=== PATIENT | male | born 1965 | race African-American/Black ===

== ENCOUNTER 2019-09-26 11:29 | Inpatient (IN) | payer MEDICAID ==
[~2019-09-26] VITALS: Ht 175.3 cm; Wt 108.8 kg
[2019-09-26 12:36] LABS: Albumin 2.7 g/dL (3.4-5.0); Calcium 8.6 mg/dL (8.5-10.1)
[2019-09-26 12:40] LABS: Bilirubin, Total 2.6 mg/dL (0.2-1.0); Total Protein 7.9 g/dL (6.4-8.2)
[2019-09-26] MEDS ORDERED: HYDROcodone-ACET 10/325MG TAB PO ONE (12:45)
[2019-09-26] MEDS ORDERED: ENOXAPARIN SOD 100 MG/1 ML SYRINGE SC ONE (13:45)
[2019-09-26 14:25] LABS: Basophils # (auto) 0 10 ^3/uL (0-0.2); Basophils % (auto) 0.4 % (0.0-2.0); Eosinophils # (auto) 0 10 ^3/uL (0-0.8); Eosinophils % (auto) 0.6 % (0.0-7.0); Hemoglobin 18.6 g/dL (13.5-17.5); Lymphocytes # (auto) 1.1 10 ^3/uL (0.4-5.4); Lymphocytes % (auto) 15.9 % (10.0-50.0); Mean Corpuscular Hemoglobin 29.4 pg (28.0-32.0); Mean Corpuscular Hgb Conc. 32.1 g/dL (32.0-36.0); Mean Corpuscular Volume 91.4 fL (80.0-100.0); Monocytes # (auto) 0.9 10 ^3/uL (0-1.3); Monocytes % (auto) 12.6 % (0.0-12.0); Neutrophils # (auto) 4.9 10 ^3/uL (1.6-8.6); Neutrophils % (auto) 70.5 % (37.0-80.0); Nucleated Red Blood Cells % 0.3 %; Platelet Count (auto) 154 10^3/uL (140-450); Red Blood Cells 6.34 10^6/uL (4.5-5.90); Red Cell Distribution Width 14.4 % (11.8-14.3); White Blood Cell 6.9 10^3/uL (4.4-10.8)
[2019-09-26 14:27] LABS: INR 1.05 (0.9-1.15); Partial Thromboplastin Time 29.6 sec (23.0-31.2)
[2019-09-26 14:28] LABS: Hematocrit 57.9 % (41.0-53.0)
[2019-09-26] MEDS ORDERED: MORPHINE SULF INJ 2 MG/ML SYRINGE 1ML IV PRN (14:30)
[2019-09-26] MEDS ORDERED: NITROGLYCERIN 0.4 MG SL TAB SL PRN (14:30)
[2019-09-26] MEDS ORDERED: ACETAMINOPHEN 500 MG TAB PO PRN (14:45)
[2019-09-26] MEDS ORDERED: TEMAZEPAM 15 MG CAP PO PRN (14:45)
[2019-09-26] MEDS: MORPHINE SULF INJ 2 MG/ML SYRINGE 1ML IV PRN (19:36)
[2019-09-26] MEDS: PROMETHAZINE HCL 25 MG/ML 1ML IV PRN (19:37)
[2019-09-26] MEDS: HYDROcodone-ACET 5/325MG TAB PO PRN (21:30)
[2019-09-26 22:22] VITALS: BP 151/96
[2019-09-26] MEDS: FAMOTIDINE 20 MG TAB PO SCH (22:54)
[2019-09-26] MEDS: ENOXAPARIN SOD 80 MG/0.8ML SYRINGE SC SCH (22:54)
[2019-09-27 05:23] VITALS: BP 145/100
[2019-09-27 08:00] VITALS: BP 174/98
[2019-09-27] MEDS: ENOXAPARIN SOD 80 MG/0.8ML SYRINGE SC SCH (08:07)
[2019-09-27] MEDS: HYDROcodone-ACET 5/325MG TAB PO PRN ×2 (08:07→14:30)
[2019-09-27] MEDS: FAMOTIDINE 20 MG TAB PO SCH ×2 (08:07→21:33)
[2019-09-27 09:00] VITALS: BP 174/98
[2019-09-27] MEDS ORDERED: HYDR-4833 PO (12:34)
[2019-09-27] MEDS ORDERED: CLOP75TA28 PO (12:36)
[2019-09-27] MEDS ORDERED: AMLO5TAB15 PO (12:36)
[2019-09-27] MEDS ORDERED: LISI-646 PO (12:36)
[2019-09-27] MEDS ORDERED: ATOR80TA PO (12:36)
[2019-09-27 13:00] VITALS: BP 169/109
[2019-09-27] MEDS ORDERED: LISINOPRIL 20 MG TAB PO ONE (13:00)
[2019-09-27] MEDS ORDERED: amLODIPine BESYLATE 5 MG TAB PO ONE (13:00)
[2019-09-27] MEDS ORDERED: hydrALAZINE HCL 20 MG/ML VL IV PRN (13:00)
[2019-09-27 17:00] VITALS: BP 157/90
[2019-09-27] MEDS: MORPHINE SULF INJ 2 MG/ML SYRINGE 1ML IV PRN (21:32)
[2019-09-27] MEDS: PROMETHAZINE HCL 25 MG/ML 1ML IV PRN (21:33)
[2019-09-27] MEDS: APIXABAN 5 MG TAB PO SCH (21:33)
[2019-09-27 22:00] VITALS: BP 156/111
[2019-09-27] MEDS ORDERED: ATORVASTATIN 20 MG TAB PO SCH (22:00)
[2019-09-28 05:00] VITALS: BP 158/115
[2019-09-28] MEDS: HYDROcodone-ACET 5/325MG TAB PO PRN (05:12)
[2019-09-28 07:18] LABS: Basophils # (auto) 0 10 ^3/uL (0-0.2); Basophils % (auto) 0.6 % (0.0-2.0); Eosinophils # (auto) 0.1 10 ^3/uL (0-0.8); Eosinophils % (auto) 2.4 % (0.0-7.0); Hemoglobin 17.8 g/dL (13.5-17.5); Monocytes # (auto) 0.7 10 ^3/uL (0-1.3)
[2019-09-28 07:21] LABS: Hematocrit 53.2 % (41.0-53.0); Lymphocytes % (auto) 17.2 % (10.0-50.0); Mean Corpuscular Hemoglobin 30.4 pg (28.0-32.0); Mean Corpuscular Hgb Conc. 33.5 g/dL (32.0-36.0); Mean Corpuscular Volume 90.7 fL (80.0-100.0); Monocytes % (auto) 12.6 % (0.0-12.0); Neutrophils # (auto) 3.8 10 ^3/uL (1.6-8.6); Neutrophils % (auto) 67.2 % (37.0-80.0); Nucleated Red Blood Cells % 0.3 %; Platelet Count (auto) 155 10^3/uL (140-450); Red Blood Cells 5.86 10^6/uL (4.5-5.90); Red Cell Distribution Width 14.4 % (11.8-14.3); White Blood Cell 5.6 10^3/uL (4.4-10.8)
[2019-09-28 07:36] LABS: Magnesium 2.4 mg/dL (1.6-2.6); Potassium 3.7 mmol/L (3.5-5.1)
[2019-09-28 07:43] LABS: Albumin 2.3 g/dL (3.4-5.0); BUN/Creatinine Ratio 10.3; Bilirubin, Total 1.5 mg/dL (0.2-1.0); Calcium 8.1 mg/dL (8.5-10.1); Total Protein 6.9 g/dL (6.4-8.2)
[2019-09-28 09:00] VITALS: BP 147/96
[2019-09-28] MEDS: APIXABAN 5 MG TAB PO SCH (09:45)
[2019-09-28] MEDS: FAMOTIDINE 20 MG TAB PO SCH (09:45)
[2019-09-28] MEDS: MORPHINE SULF INJ 2 MG/ML SYRINGE 1ML IV PRN (09:46)
[2019-09-28] MEDS ORDERED: HCTZ 25 MG TAB PO SCH (10:00)
[2019-09-28] MEDS ORDERED: LISINOPRIL 20 MG TAB PO SCH (10:00)
[2019-09-28] MEDS ORDERED: amLODIPine BESYLATE 5 MG TAB PO SCH ×2 (10:00)
[2019-09-28] MEDS ORDERED: POTA1TAB61 PO (10:18)
[2019-09-28] MEDS ORDERED: PANT40TA2 PO (10:18)
[2019-09-28] MEDS ORDERED: HCTZ25T PO (10:18)
[2019-09-28 12:15] LABS: Alcohol, Urine < 3.0 mg/dL (0-10); Amphetamine Screen, Urine NEGATIVE (NEGATIVE); Barbiturate Scree,Urine NEGATIVE (NEGATIVE); Benzodiazephine Screen, Urine NEGATIVE (NEGATIVE); Cannabinoid Screen, Urine NEGATIVE (NEGATIVE); Cocaine Screen, Urine NEGATIVE (NEGATIVE); Opiate Scree,Urine POSITIVE (NEGATIVE); Phencyclidine Screen, Urine NEGATIVE (NEGATIVE)
[2019-09-28 12:24] LABS: Urine Bacteria NONE SEEN /hpf (None Seen); Urine Blood Negative /uL (Negative); Urine Specific Gravity 1.015 (1.001-1.035); Urine WBC 1 /hpf (0 - 3)
[2019-10-04] MEDS ORDERED: APIXABAN 5 MG TAB PO SCH (22:00)
== END 2019-09-28 13:46 | disposition home or self-care (01) | DRG 197 ==
LOC: ER 11:29 → TELE 11:30 → TELE-CENTR 21:50
PROVIDERS: ADMIT Internal Medicine; ATTEND Internal Medicine
DX: I82.401 Acute embolism and thrombosis of unspecified deep veins of right lower extremity (principal); I10 Essential (primary) hypertension; F17.200 Nicotine dependence, unspecified, uncomplicated; E66.01 Morbid (severe) obesity due to excess calories; Z82.3 Family history of stroke; Z82.49 Family history of ischemic heart disease and other diseases of the circulatory system; Z71.6 Tobacco abuse counseling; Z68.35 Body mass index [BMI] 35.0-35.9, adult; I69.351 Hemiplegia and hemiparesis following cerebral infarction affecting right dominant side
CPT/HCPCS: 36415; 80053; 80061; 80307; 81001; 81241; 83735; 84443; 85025; 85302; 85305; 85306; 85610; 85613; 85670; 85705; 85730; 85732; 93971; G0378

== ENCOUNTER 2019-12-19 10:40 | Inpatient (IN) | payer MEDICAID ==
[~2019-12-19] VITALS: Ht 175.3 cm; Wt 116.6 kg
[~2019-12-19 10:40] MED LIST: AMLO5TAB15 PO; ATOR80TA PO; CLOP75TA28 PO; HCTZ25T PO; HYDR-4833 PO; LISI-646 PO; PANT40TA2 PO; POTA1TAB61 PO
[2019-12-19] MEDS ORDERED: HEPARIN SODIUM (PORCINE) 5000 UNITS/ML 1ML VIAL IV ONE (11:30)
[2019-12-19] MEDS ORDERED: HEPARIN SODIUM (PORCINE) 5000 UNITS/ML 1ML VIAL ONE ×2 (11:52)
[2019-12-19 12:05] LABS: Urine Bacteria NONE SEEN /hpf (None Seen); Urine Blood Negative /uL (Negative); Urine Mucus FEW (None Seen); Urine Specific Gravity 1.025 (1.001-1.035); Urine Sperm PRESENT /hpf (None Seen); Urine WBC 2 /hpf (0 - 3)
[2019-12-19 12:08] LABS: Basophils # (auto) 0 10 ^3/uL (0-0.2); Basophils % (auto) 0.6 % (0.0-2.0); Eosinophils # (auto) 0.3 10 ^3/uL (0-0.8); Eosinophils % (auto) 4.3 % (0.0-7.0); Hematocrit 51.8 % (41.0-53.0); Hemoglobin 17.4 g/dL (13.5-17.5); Lymphocytes # (auto) 1.1 10 ^3/uL (0.4-5.4); Mean Corpuscular Hemoglobin 30.5 pg (28.0-32.0); Mean Corpuscular Hgb Conc. 33.6 g/dL (32.0-36.0); Mean Corpuscular Volume 90.5 fL (80.0-100.0); Monocytes # (auto) 0.7 10 ^3/uL (0-1.3); Monocytes % (auto) 10.8 % (0.0-12.0); Neutrophils # (auto) 4.2 10 ^3/uL (1.6-8.6); Neutrophils % (auto) 67.3 % (37.0-80.0); Nucleated Red Blood Cells % 0.4 %; Platelet Count (auto) 160 10^3/uL (140-450); Red Blood Cells 5.73 10^6/uL (4.5-5.90); Red Cell Distribution Width 15.2 % (11.8-14.3); White Blood Cell 6.2 10^3/uL (4.4-10.8)
[2019-12-19 12:15] LABS: INR 0.99 (0.9-1.15); Partial Thromboplastin Time 26.8 sec (23.0-31.2)
[2019-12-19 12:17] LABS: Albumin 2.8 g/dL (3.4-5.0); Anion Gap 4 (5-15); Blood Urea Nitrogen 11 mg/dL (7-18); Calcium 8.5 mg/dL (8.5-10.1); Carbon Dioxide 28 mmol/L (21-32); Chloride 105 mmol/L (98-107); Glucose 84 mg/dL (74-106); Potassium 3.8 mmol/L (3.5-5.1); Sodium 137 mmol/L (136-145)
[2019-12-19 12:23] LABS: Alanine Aminotransferase 21 U/L (16-61); Alkaline Phosphatase 78 U/L (45-117); Aspartate Aminotransferase 15 U/L (15-37); BUN/Creatinine Ratio 10.1; Bilirubin, Total 2.2 mg/dL (0.2-1.0); GFR African American 91 mL/min; GFR Non-African American 75 mL/min; Total Protein 7.4 g/dL (6.4-8.2)
[2019-12-19] MEDS ORDERED: ONDANSETRON HCL 4 MG/2 ML VIAL IV ONE (13:30)
[2019-12-19] MEDS ORDERED: MORPHINE SULFATE 4 MG/ML SYR/VIAL IV ONE (13:30)
[2019-12-19] MEDS ORDERED: IOHEXOL 300 MG/ML 100ML BOTTLE IJ ONE (13:31)
[2019-12-19] MEDS ORDERED: MORPHINE SULF INJ 2 MG/ML SYRINGE 1ML IV PRN (14:30)
[2019-12-19] MEDS ORDERED: NITROGLYCERIN 0.4 MG SL TAB SL PRN (14:30)
[2019-12-19] MEDS ORDERED: hydrALAZINE HCL 20 MG/ML VL IV PRN (20:00)
--- NOTE | 2019-12-19 20:05 | NUR ---
Telemetry admit from ER ZACKERY CARRILLO admitted to Telemetry unit after SBAR received. Patient oriented to DARIEL DUNCAN RN primary central medsurgical room 212b, and unit policies regarding patient care and visiting hours. Patient now on continuous telemetry monitoring, tele box #40 and telemetry reading on arrival to unit is sinus rythm 92 heart rate. Patient placed on room air weighed by bedscale and encouraged to call if they need something. bed locked in lowest position, side rails up X2, call light within reach. no signs of SOB or distress. All questions and concerns addressed, patient verbalized understanding.
[2019-12-19] MEDS ORDERED: DICL1GEL50 TOP (20:27)
[2019-12-19] MEDS ORDERED: AMLO5TAB15 PO (20:27)
[2019-12-19] MEDS ORDERED: APIX5TAB PO (20:27)
[2019-12-19] MEDS ORDERED: LIDO5DIS21 TOP (20:27)
[2019-12-19] MEDS: MORPHINE SULF INJ 2 MG/ML SYRINGE 1ML IV PRN (20:30)
[2019-12-19] MEDS: APIXABAN 5 MG TAB PO SCH (20:32)
[2019-12-19 22:00] VITALS: BP 160/104
[2019-12-19] MEDS ORDERED: ATORVASTATIN 20 MG TAB PO SCH (22:00)
[2019-12-19] MEDS: HYDROcodone-ACET 5/325MG TAB PO PRN (22:36)
[2019-12-19] MEDS: amLODIPine BESYLATE 5 MG TAB PO SCH (22:37)
[2019-12-19 22:55] VITALS: BP_SYST 149; BP_DIAS 92; BP_DIAS 94
[2019-12-20 05:00] VITALS: BP 142/91
[2019-12-20] MEDS: MORPHINE SULF INJ 2 MG/ML SYRINGE 1ML IV PRN (06:47)
--- NOTE | 2019-12-20 07:30 | NUR ---
Opening Shift Note Assumed care of patient, who is alert and oriented x4. Respirations are even and unlabored. No S/S of distress/SOB or pain. Bed is low, locked with 2x side rails up. Call light is within reach. Instructed on POC and to call for assist PRN, will continue to monitor for changes Q1hr and PRN.
[2019-12-20 09:00] VITALS: BP 143/88
[2019-12-20] MEDS: APIXABAN 5 MG TAB PO SCH ×2 (09:59→18:05)
[2019-12-20] MEDS: HYDROcodone-ACET 5/325MG TAB PO PRN (09:59)
[2019-12-20] MEDS ORDERED: CLOPIDOGREL BISULFATE 75 MG TAB PO SCH (10:00)
[2019-12-20] MEDS ORDERED: PANTOPRAZOLE 40 MG TAB PO SCH (10:00)
[2019-12-20] MEDS: amLODIPine BESYLATE 5 MG TAB PO SCH (10:00)
[2019-12-20] MEDS ORDERED: LISINOPRIL 20 MG TAB PO SCH (10:00)
[2019-12-20 12:21] VITALS: BP 146/93
--- NOTE | 2019-12-20 12:55 | NUR ---
Gwen Travis at bedside Discussing POC with patient.
[2019-12-20 16:09] VITALS: BP 141/93
[2019-12-20] MEDS ORDERED: HYDR-4833 PO ×2 (16:14→16:16)
[2019-12-20] MEDS ORDERED: APIX5TAB4 PO (16:14)
[2019-12-20 17:08] VITALS: BP 141/93
--- NOTE | 2019-12-20 17:40 | NUR ---
Eliquis medication Received a call from [facility] pharmacy. Per pharmacy, this patient had Eliquis prescription filled 2 days go (12/18/19). This nurse contact patient's pharmacy ([facility] pharmacy) and per pharmacy picking technician at [facility], this patient had Eliquis prescription filled 2 days ago but has not picked up the prescription. Contacted Gwen Travis and he stated for patient to take 10mg PO BID x 6 days, then 5mg PO BID. Will give patient new instructions and advise patient to pickling operator medications from pharmacy. Patient was also requesting pain medication. Spoke with Gwen Travis and per MD he could not prescribe patient any pain medication (Hewett's) because patient had this medication filled on 12/02/19. Will advise patient to follow up with PCP for refills.
--- NOTE | 2019-12-20 18:12 | NUR ---
Eliquis Patient's preferred pharmacy ([facility] pharmacy) closes at 1800. Spoke with charge nurse Juma. Ok to give 2200 dose of Eliquis so patient does not miss out on any doses. Patient educated on importance of not skipping/stopping medication abruptly. Patient aware that he must go to [facility] pharmacy tomorrow morning to picking machine operator prescription that has been filled. Prescription has been ready for picking machine operator since 12/18/19. Patient is also aware of dosage changes and that he must start with Eliquis 10mg po BID.
--- NOTE | 2019-12-20 18:19 | NUR ---
Discharge instructions given as ordered. Encourage to follow up with PMD as instructed. Both PCP and hematology ([facility]) office were closed. Patient aware that he must call both offices to schedule follow up appointments. All questions and concerns addressed. Patient verbalized understanding. IV removed with catheter intact, pressure dressing applied. Telemetry unit returned to ICU. Patient ambulated with crutches with all personal belongings. No distress noted at time of departure.
[2019-12-21 08:07] LABS: Immunoglobulin G, Serum 1323 mg/dL (603-1613)
--- NOTE | 2019-12-23 12:17 | NUR ---
The order for Home Health Safety Eval was not paged to me before the patient was discharged home, spoke with Isha from [facility] [phone], and will arrange to day. Faxed the request to [facility] and waiting for acceptance.
--- NOTE | 2019-12-23 13:42 | NUR ---
Spoke with [employer] [employer] [facility], stated they have accepted the patient and will se in the next 24 -48 hours, Spoke with Daniela INFANTE at [facility] and made her aware that [facility] the patient gave authorization # [id number] and states she will fax it to [facility]
[2019-12-26] MEDS ORDERED: APIXABAN 5 MG TAB PO SCH (22:00)
== END 2019-12-20 18:20 | disposition home health service (06) | DRG 197 ==
LOC: ER 10:40 → TELE 10:41 → TELE-CENTR 20:05
PROVIDERS: ADMIT Internal Medicine; ATTEND Internal Medicine
DX: I82.401 Acute embolism and thrombosis of unspecified deep veins of right lower extremity (principal); I26.99 Other pulmonary embolism without acute cor pulmonale; I10 Essential (primary) hypertension; I25.10 Atherosclerotic heart disease of native coronary artery without angina pectoris; K21.9 Gastro-esophageal reflux disease without esophagitis; R77.1 Abnormality of globulin; Z86.73 Personal history of transient ischemic attack (TIA), and cerebral infarction without residual deficits; E78.5 Hyperlipidemia, unspecified; K57.30 Diverticulosis of large intestine without perforation or abscess without bleeding; Z79.01 Long term (current) use of anticoagulants; N40.0 Benign prostatic hyperplasia without lower urinary tract symptoms; Z79.899 Other long term (current) drug therapy; Z91.14 Patient's other noncompliance with medication regimen
CPT/HCPCS: 36415; 71045; 74177; 80053; 81001; 82784; 83615; 83883; 84155; 84165; 84484; 85025; 85610; 85730; 86334; 93971; 96374; 96375; 96376; 97163; G0378; J2405